=== PATIENT | female | born 1980 | race Caucasian/White ===

== ENCOUNTER → 2018-03-09 13:48 | Outpatient (CLI) | payer OTHER, SELFPAY ==
[2018-03-13 11:12] LABS: HPV Reflexed? NOT INDICATED
== END ==
PROVIDERS: Visit Provider Obstetrics & Gynecology
DX: Z12.4 Encounter for screening for malignant neoplasm of cervix (principal)
CPT/HCPCS: 88175; G0145

== ENCOUNTER → 2019-04-03 15:18 | Outpatient (CLI) | payer OTHER, SELFPAY ==
--- NOTE | 2019-04-03 15:22 | BI_ITS ---
MAMMOGRAPHY - BILATERAL SCREENING REASON FOR EXAM: Female, 38 years old. Routine annual screening examination. PERTINENT HISTORY: Non-contributory. TECHNIQUE: Digital bilateral breast ameya (3D mammographic acquisition) in the CC and MLO projections. 2-D mediolateral oblique (MLO) and craniocaudad (CC) views of both breasts were obtained. CAD: Full Field Digital Mammography with Computer Added Detection was performed. COMPARISON: None. Baseline examination. FINDINGS: Breast Composition: The breasts are extremely dense, which lowers the sensitivity of mammography. There are no dominant masses or suspicious calcifications. No other significant abnormalities are identified. BI/SCREEN MAMM (CAD) W/AMEYA BILAT IMPRESSION: Negative screening mammogram. Yearly followup mammogram recommended. (A) ASSESSMENT CATEGORY: BIRADS Category 1: Negative. A letter regarding these results will be sent to the patient by the facility within 30 days. Approximately 10% of breast cancers are not detected by mammography. A normal mammogram should not delay biopsy of a clinically suspicious abnormality. [id number] Electronically Signed: Marcelino Kay, at 8:37 EDT , Service support ,
== END ==
PROVIDERS: Family Provider Family Medicine; PCP Family Medicine; Referring Provider Obstetrics & Gynecology; Visit Provider Obstetrics & Gynecology
DX: Z12.31 Encounter for screening mammogram for malignant neoplasm of breast (principal)
CPT/HCPCS: 77063; 77067

== ENCOUNTER → 2020-04-23 13:35 | Outpatient (CLI) | payer OTHER, SELFPAY ==
[2016-09-08 13:20] VITALS: BMI 26.9
[2020-04-29 17:01] LABS: HPV Reflexed? NOT INDICATED
== END ==
PROVIDERS: PCP Family Medicine; Visit Provider Obstetrics & Gynecology
DX: Z12.4 Encounter for screening for malignant neoplasm of cervix (principal)
CPT/HCPCS: 88175; G0145

== ENCOUNTER → 2020-06-14 10:11 | Outpatient (CLI) | payer OTHER, SELFPAY ==
--- NOTE | 2020-06-14 10:13 | BI_ITS ---
MAMMOGRAPHY - BILATERAL SCREENING REASON FOR EXAM: Female, 39 years old. Routine annual screening examination. PERTINENT HISTORY: Non-contributory. TECHNIQUE: Digital bilateral breast ameya (3D mammographic acquisition) in the CC and MLO projections. 2-D mediolateral oblique (MLO) and craniocaudad (CC) views of both breasts were obtained. CAD: Full Field Digital Mammography with Computer Added Detection was performed. COMPARISON: Comparison is made with prior study dated 04/03/2019. FINDINGS: Breast Composition: The breasts are extremely dense, which lowers the sensitivity of mammography. There are no dominant masses or suspicious calcifications. No other significant abnormalities are identified. There has been no significant change since the prior study. BI/SCREEN MAMM (CAD) W/AMEYA BILAT IMPRESSION: Stable bilateral screening mammogram. Yearly follow-up mammogram recommended. (A) ASSESSMENT CATEGORY: BIRADS Category 1: Negative. A letter regarding these results will be sent to the patient by the facility within 30 days. Approximately 10% of breast cancers are not detected by mammography. A normal mammogram should not delay biopsy of a clinically suspicious abnormality. [id number] Electronically Signed: Marcelino Kay, at 9:02 EDT , Service support ,
== END ==
PROVIDERS: PCP Family Medicine; Referring Provider Obstetrics & Gynecology; Visit Provider Obstetrics & Gynecology
DX: Z12.31 Encounter for screening mammogram for malignant neoplasm of breast (principal)
CPT/HCPCS: 77063; 77067

== ENCOUNTER 2020-12-03 13:51 | Observation (INO) | payer OTHER, SELFPAY ==
[2020-12-03] VITALS (7 sets, daily range): BP systolic 111–157; BP diastolic 65–101; PULSE 84–98; RESP 14–18; TEMP 36.7–37.4; O2SAT 97–100; BMI 25.4; BMI 25.5
--- NOTE | 2020-12-03 14:19 | CT_ITS ---
STUDY: CT ABDOMEN AND PELVIS WITH CONTRAST REASON FOR EXAM: Female, 40 years old. abdominal pain -- IV PO Contrast RADIATION DOSAGE (If Supplied By Facility): CTDIvol = ( 10.215 ) mGy, DLP = ( 528.79 ) mGycm TECHNIQUE: Transaxial images were obtained from the dome of the diaphragm to the symphysis pubis without oral contrast. Oral and amp; IV Gastrografin and amp; 100mL Isovue-300 was administered. Sagittal and coronal images were reconstructed. Individualized dose optimization techniques were used for this CT. COMPARISON: 12/02/2009 report only FINDINGS: There is a tiny 5 mm nodule in the left lower lobe. The visualized portions of the heart are within normal limits. Liver is normal size homogeneous attenuation. There is no focal mass demonstrated. There is bile duct dilatation in association with cholecystectomy.. Normal spleen. Normal pancreas. Normal bilateral adrenal glands. Normal right kidney. Normal left kidney. Diffusely distended contrast-filled stomach Mild nonspecific ileus with diffuse fecal retention in the colon. No evidence for small bowel obstruction.. No evidence for acute appendicitis. Normal abdominal aorta. Normal inferior vena cava. Normal retroperitoneum. Uterus is prominent for age depressing the dome of the bladder which is incompletely distended and thick-walled. Small left right ovarian cyst measuring approximately 2 x 1.8 cm ovarian cyst measuring 2.35 x 2.4 cm and Normal abdominal wall. Normal osseous structures. CT/Abdomen/Pelvis WITH Contrast IMPRESSION: Mild dilatation in association with prior cholecystectomy likely physiologic without definitive evidence for obstructing intraductal stone or pancreatic mass Diffuse gastric distention and nonspecific ileus may be on the basis of gastroenteritis. No evidence for small bowel obstruction. Enlarged uterus for age and small bilateral ovarian cysts which may be further assessed with pelvic sonogram if indicated Incidental finding of small noncalcified nodule in left lower lobe approximately 5 mm in size which appears to have increased in size slightly since prior study based on report of that exam. Would recommend comparison with prior exam when available and possibly dedicated CT of the chest for further evaluation Electronically Signed: Cabrera Bean MD at 16:58 EST , Service support ,
--- NOTE | 2020-12-03 14:20 | ED.VISSUMM ---
- ER Visit Summary Date of Service: 12/03/20 Chief Complaint: [Abdominal pain] History of Present Illness: The patient is a 40 F [presents to the emergency department complaint of abdominal pain that started around 1 PM today. Patient states that she had not felt well throughout the day and just had some body aches and some mild nausea. Patient states that the pain came on suddenly around 1 PM in the upper abdomen. She continues to have nausea but no vomiting. She denies any diarrhea. Patient's had prior cholecystectomy. She denies NSAID usage. Patient has not had history of peptic ulcer disease. She denies blood in her stool or black tarry stools. She denies urinary symptoms. Patient currently rates her pain a 7 out of 10. Patient's last menstrual period was 2 weeks ago. Patient denies Covid exposures. She did have the Covid vaccine 1 week ago.] Physical Examination: [HEENT-PERRLA, EOMI. Cranial nerves II through XII grossly intact. TMs clear. Mucous membranes moist. No adenopathy. Cardiovascular-regular rate and rhythm without murmur or ectopy Lungs-clear to auscultation, chest wall stable without crepitus or subcu emphysema Abdomen-normoactive bowel sounds, soft. Patient has tenderness to palpation over the epigastric region with some guarding. There is no rebound, rigidity, or cranial signs. Extremities-intact ?4, normal range of motion, normal pulses, atraumatic] Test Results: [] Emergency Department Course and Treatment: [] Treatment Plan: [] Disposition: [] Impression: [] This note was generated with [employer] dictation software. It may contain incorrect words, spelling, and punctuation that were not noted in review of the chart prior to signing ED Disposition - Plan for ED Patient: Referrals: Baltazar Adan MD [Primary Care Provider] -
[2020-12-03 14:45] LABS: Absolute Lymphocyte Count 0.47 X10^3/uL (0.83-4.51); Absolute Neutrophil Count 6.4 X10^3/uL (2.0-7.7); Basophil# 0.03 X10^3/uL; Basophil% 0.4 % (0-1); Eosinophil# 0.02 X10^3/uL; Eosinophils% 0.3 % (0-5); Hematocrit 43.5 % (37-47); Hemoglobin 14.8 g/dL (12.0-15.0); Lymphocyte # 0.47 X10^3/ul (4.0); Lymphocyte % 6.4 % (19-41); Mean Corpuscular Hgb 30.6 pg (27.0-32.0); Mean Corpuscular Volume 90.1 fL (81-99); Mean Platelet Vol. 8.6 fl (6.2-12.0); Monocyte# 0.33 X10^3/uL; Monocyte% 4.5 % (0-10); NRBC Flagged by Analyzer 0 % (0-5); Neutrophil # 6.43 X10^3/uL (2.7-7.7); Neutrophil % 87.7 % (47-70); POSITIVE DIFFERENTIAL YES; Platelet Count 283 K/mm3 (150-450); RBC Distribution Width CV 11.9 % (11.6-14.6); RBC Distribution Width SD 39.3 fl (35.1-43.9); Red Blood Count 4.83 M/mm3 (4.2-5.4); White Blood Count 7.3 K/mm3 (4.4-11.0)
[2020-12-03] MEDS: Morphine 4 MG/ML Syringe IV ×2 (14:47→16:15)
[2020-12-03] MEDS: Ondansetron 4 MG/2 ML Vial IV (14:47)
[2020-12-03] MEDS: 0.9% Normal Saline 1,000 ML 125 ML IV (14:47)
[2020-12-03 14:50] LABS: Differential Indicated SCAN CRITERIA MET
[2020-12-03 14:57] LABS: Internal QC Validated? YES +Cl - CLEAR BKGD; Pregnancy, Serum, hCG Quali. NEGATIVE Negative
[2020-12-03 15:04] LABS: ALB/GLOB Ratio 1.1 RATIO (0.9-2.4); AST(SGOT) 167 U/L (15-37); Alanine Aminotransfer ALT/SGPT 92 U/L (13-56); Albumin, Serum 3.9 g/dL (3.2-5.0); Alkaline Phosphatase 82 U/L (45-117); Anion Gap 6 (5-15); BUN 22 mg/dL (7-18); BUN/Creat Ratio 28.2 RATIO (10-20); Calcium,Total 8.3 mg/dL (8.5-10.1); Chloride 106 mmol/L (98-107); Creatinine, Serum 0.78 mg/dL (0.55-1.02); EST Glomerular Filtration Rate 86 mL/min (>60); Est Glom Filt Rate - Afr Amer 104 mL/min (>60); Estimated Creatinine Clearance 77.72 ml/min; Globulin 3.5 g/dL (2.2-4.2); Glucose 95 mg/dL (74-106); Lipase 116 U/L (73-393); Potassium 3.6 mmol/L (3.5-5.1); Protein, Total 7.4 g/dL (6.4-8.2); Sodium Level 139 mmol/L (136-145)
[2020-12-03 15:27] LABS: Differential Comment SCANNED
[2020-12-03 15:56] LABS: Bacteria 0 SEEN /hpf (None Seen); Red Blood Cells-Urine 0 SEEN /hpf (0-5)
[2020-12-03 16:16] LABS: Color, Urine Yellow (Yellow); Glucose, Dipstick Normal (Normal); Ketone-Dipstick 15 mg/dl (Negative); Leukocyte Esterase-Dipstick 25 /ul (Negative); Nitrite-Dipstick Negative (Negative); Occult Blood-Urine 25 /ul (Negative); Protein-Dipstick 15 mg/dl (Negative); Specific Gravity, Urine 1.015 (1.002-1.030); Urine Bilirubin Dipstick Negative (Negative); Urine Clarity Clear (Clear); Urine Urobilinogen 1 mg/dl (Normal)
[2020-12-03 16:36] LABS: Mucous, Urine 2+ /hpf (<or=2+); Squamous Epithelial Cells - UA 0-5 SEEN /hpf (5-10); White Blood Cells 0-5 SEEN /hpf (0-5)
--- NOTE | 2020-12-03 17:50 | RAD_ITS ---
STUDY: X-RAY - ABDOMEN/PELVIS REASON FOR EXAM: Female, 40 years old. NG Insertion TECHNIQUE: KUB COMPARISON: None. FINDINGS: Normal visualized lung bases. There is an unremarkable bowel gas pattern. There is no demonstrated free abdominal air. There are surgical clips in the right upper quadrant and left mid abdomen. There is residual contrast seen within the renal collecting systems bilaterally NG tube has been placed with tip in the distal stomach at the level of the gastric antrum Normal soft tissue structures. Normal visualized osseous structures. RAD/Abdomen Single View (Portable) IMPRESSION: NG tube placement with tip in the gastric antrum Electronically Signed: Cabrera Bean MD at 18:20 EST , Service support ,
--- NOTE | 2020-12-03 18:41 | PCM.HP.STD ---
History of Present Illness Date of Admission: 12/03/20 The patient is a 40 year old F presented to ER due to epigastric abdominal pain 07/05 initially--started about 1:30 pm today--then was 6-04/04. Pt states she wasn't hungry this AM; was able to workout this AM and the pain came on all of a sudden during a meeting at school. Patient states that yesterday she was feeling normal with no issues. Pt denies n/v, or previous abd pain or GERD or constipation- pt states she has BM daily. Pt had lap lee [address] [place] a/p showed gastric distension, constipation, mild dilated intrahepatic bile ducts. WBC was normal w partial left shift, elevated Tbili/AST/ALT & normal AP. NG placed in ER for 550 cc- pt pain improved with NG now 11/05. Past Medical History Past Medical History (Chronic Problems): Chronic Problems Mass of right upper extremity (Chronic) R22.31 6 cm soft tissue mass right posterior arm/shoulder Allergies No Known Allergies Allergy (Verified 12/03/20 13:54) Home Medications: Ambulatory Orders Medication Instructions Recorded Rizatriptan Benzoate [Rizatriptan] 10 mg PO DAILY PRN PRN 12/03/20 Surgical History: cholecystectomy - lap 2005 [place] Psychiatric History: No pertinent psych hx ATHLETIC EQUIPMENT CUSTODIAN History: No pertinent ATHLETIC EQUIPMENT CUSTODIAN history Lives: With Family Smoking Status: Never smoker Tobacco Use: Non-smoker Alcohol: Occasional - *Family History Maternal History Items: No pertinent history Review of Systems Constitutional: Reports: Anorexia Eyes: Denies: Blurred vision HEENT: Denies: Difficulty Swallowing Cardiovascular: Denies: Chest Pain Respiratory: Denies: Cough Gastrointestinal: Reports: Abdominal Pain, Nausea. Denies: Diarrhea Genitourinary: Denies: Dysuria Skin: Denies: Jaundice Neurological: Denies: Balance problems Psychiatric: Denies: Depression Hematologic/ Lymphatic: Denies: Easy Bleeding VTE Information - Inpt Only VTE Present on Admission: Yes VTE Mechan Device Prophylaxis: SCD's - Physical Exam Vitals/I&O's: Vital Signs Temp Pulse Resp BP Pulse Ox 98.5 F 98 14 157/101 H 99 12/03/20 13:52 12/03/20 18:03 12/03/20 18:03 12/03/20 18:03 12/03/20 18:03 Oxygen Delivery Method Room Air Weight: 143 lb 4.807 oz Body Mass Index (BMI) 25.4 General: Alert, Oriented x3, Cooperative HEENT: - - NG in place Lungs: Normal air movement Cardiovascular: Regular rate Abdomen: Soft, Non-Distended, Tender - mild- epigastric, no PS Extremities: No clubbing, No cyanosis, No edema Neurological: Cranial nerves II-XII grossly intact Psych/Mental Status: Anxious Laboratory Results 12/03/20 14:30: WBC 7.3, RBC 4.83, Hgb 14.8, Hct 43.5, MCV 90.1, MCH 30.6, MCHC 34.0, RDW Std Deviation 39.3, RDW Coeff of Jorge Luis 11.9, Plt Count 283, MPV 8.6, Immature Gran % (Auto) 0.700, Neut % (Auto) 87.7 H, Lymph % (Auto) 6.4 L, [place] % (Auto) 4.5, Eos % (Auto) 0.3, Baso % (Auto) 0.4, Absolute Neuts (auto) 6.4, Absolute Lymphs (auto) 0.47 L, Nucleated RBC % 0, Differential Comment SCANNED 12/03/20 14:30: Sodium 139, Potassium 3.6, Chloride 106, Carbon Dioxide 27.0, Anion Gap 6, BUN 22 H, Creatinine 0.78, Estim Creat Clear Calc 77.72, Est GFR (MDRD) Af Amer 104, Est GFR (MDRD) Non-Af 86, BUN/Creatinine Ratio 28.2 H, Glucose 95, Calcium 8.3 L, Total Bilirubin 2.20 H, AST 167 H, ALT 92 H, Alkaline Phosphatase 82, Total Protein 7.4, Albumin 3.9, Globulin 3.5, Albumin/Globulin Ratio 1.1, Lipase 116 12/03/20 14:30: Lactic Acid 1.0 12/03/20 14:30: Serum , Qual NEGATIVE 12/03/20 15:45: Urine Color Yellow, Urine Clarity Clear, Urine pH 6.0, Ur Specific [place] 1.015, Urine Protein 15 H, Urine Glucose (UA) Normal, Urine Ketones 15 H, Urine Occult Blood 25 H, Urine Nitrite Negative, Urine Bilirubin Negative, Urine Urobilinogen 1 H, Ur Leukocyte Esterase 25 H, Urine RBC 0 SEEN, Urine WBC 0-5 SEEN, Ur Squamous Epith Cells 0-5 SEEN, Urine Bacteria 0 SEEN, Urine Mucus 2+ Current Medications Sodium Chloride () 1,000 mls @ 125 mls/hr IV .Q8H PACHECO Last Admin: 12/03/20 14:47 Dose: 125 mls/hr Documented by: Assessment/Plan 40-year-old female with epigastric abdominal pain, elevated liver functions, CT abdomen pelvis showed distended stomach, constipation, mild dilated intrahepatic biliary ducts 1. Unsure the exact cause of gastric distention. NG put out about 500 in the ER. Patient's pain is much better after NG placement. We will plan to do some enemas due to the constipation see if this helps as well. May also give PO contrast in AM and get KUB 2. We will recheck liver functions in a.m. Continue to be elevated will get an MRCP in AM. Asuncion Nina M.D. Pager: [phone] [facility] [address] [place] [address], Outpatient [place], [address] [place] [id number] Office: [phone] Inpatient E&M: [id number] Init Hosp L2
[2020-12-03] MEDS: 0.9% Saline Lock 10 ML Syringe IV (21:15)
[2020-12-03] MEDS: Lactated Ringers 1,000 ML 125 ML IV (21:15)
--- NOTE | 2020-12-03 21:28 | NURSING ---
soap suds enema given per order
[2020-12-04] VITALS (8 sets, daily range): BP systolic 104–120; BP diastolic 60–77; PULSE 87–100; RESP 14–18; TEMP 37–38; O2SAT 95–100
[2020-12-04] MEDS: Lactated Ringers 1,000 ML 125 ML IV ×4 (04:44→21:40)
--- NOTE | 2020-12-04 06:34 | RAD_ITS ---
STUDY: X-RAY - ABDOMEN/PELVIS REASON FOR EXAM: Female, 40 years old. gastric distention -- Give gastrografin 30 min before- ok for portable TECHNIQUE: Single AP view of the abdomen / pelvis. COMPARISON: None. FINDINGS: Nasogastric tube with the tip in the middle the abdomen likely in the antrum of the stomach. Status post cholecystectomy. There is an unremarkable bowel gas pattern. The visualized liver, spleen and kidneys are grossly normal in size and morphology. Normal soft tissue structures. Normal visualized osseous structures. RAD/Abdomen Single View (Portable) IMPRESSION: 1. Nasogastric tube likely in the antrum of the stomach. 2. No bowel obstruction. Electronically Signed: Bill Hogan MD at 8:52 EST Tel , Service support ,
[2020-12-04 06:49] LABS: Absolute Lymphocyte Count 0.62 X10^3/uL (0.83-4.51); Absolute Neutrophil Count 2.3 X10^3/uL (2.0-7.7); Basophil# 0.02 X10^3/uL; Basophil% 0.6 % (0-1); Eosinophil# 0.04 X10^3/uL; Eosinophils% 1.2 % (0-5); Hemoglobin 12.5 g/dL (12.0-15.0); Lymphocyte # 0.62 X10^3/ul (4.0); Lymphocyte % 18.5 % (19-41); Mean Corp Hgb Conc 33.8 g/dL (32-36); Mean Corpuscular Hgb 30.4 pg (27.0-32.0); Mean Platelet Vol. 8.6 fl (6.2-12.0); Monocyte# 0.39 X10^3/uL; Monocyte% 11.6 % (0-10); NRBC Flagged by Analyzer 0 % (0-5); Neutrophil # 2.27 X10^3/uL (2.7-7.7); Neutrophil % 67.8 % (47-70); Platelet Count 258 K/mm3 (150-450); RBC Distribution Width CV 11.9 % (11.6-14.6); RBC Distribution Width SD 39.1 fl (35.1-43.9); Red Blood Count 4.11 M/mm3 (4.2-5.4); White Blood Count 3.4 K/mm3 (4.4-11.0)
--- NOTE | 2020-12-04 06:55 | PCM.PN.SRG ---
Subjective: 100 cc from NG overnight including 30 cc flush. Denies any abdominal pain, patient did have a bowel movement with the enema. - Physical Exam Vitals/I&O's: Vital Signs Temp Pulse Resp BP Pulse Ox 99 F 94 16 104/60 97 12/04/20 04:42 12/04/20 04:42 12/04/20 04:42 12/04/20 04:42 12/04/20 04:42 Oxygen Delivery Method Room Air Weight: 144 lb 2.917 oz Body Mass Index (BMI) 25.5 Intake and Output for Last 24 Hours 12/02/20 12/03/20 12/04/20 23:59 23:59 23:59 Intake Total 1038.75 / 1038.75 790.42 / 790.42 Output Total 850 / 850 Balance 188.75 / 188.75 790.42 / 790.42 General: Alert, Oriented x3, Cooperative, No apparent distress HEENT: Atraumatic Lungs: Normal air movement Cardiovascular: Regular rate Abdomen: Soft, Non Tender, Non-Distended Laboratory Results 12/03/20 14:30: WBC 7.3, RBC 4.83, Hgb 14.8, Hct 43.5, MCV 90.1, MCH 30.6, MCHC 34.0, RDW Std Deviation 39.3, RDW Coeff of Jorge Luis 11.9, Plt Count 283, MPV 8.6, Immature Gran % (Auto) 0.700, Neut % (Auto) 87.7 H, Lymph % (Auto) 6.4 L, [place] % (Auto) 4.5, Eos % (Auto) 0.3, Baso % (Auto) 0.4, Absolute Neuts (auto) 6.4, Absolute Lymphs (auto) 0.47 L, Nucleated RBC % 0, Differential Comment SCANNED 12/03/20 14:30: Sodium 139, Potassium 3.6, Chloride 106, Carbon Dioxide 27.0, Anion Gap 6, BUN 22 H, Creatinine 0.78, Estim Creat Clear Calc 77.72, Est GFR (MDRD) Af Amer 104, Est GFR (MDRD) Non-Af 86, BUN/Creatinine Ratio 28.2 H, Glucose 95, Calcium 8.3 L, Total Bilirubin 2.20 H, AST 167 H, ALT 92 H, Alkaline Phosphatase 82, Total Protein 7.4, Albumin 3.9, Globulin 3.5, Albumin/Globulin Ratio 1.1, Lipase 116 12/03/20 14:30: Lactic Acid 1.0 12/03/20 14:30: Serum , Qual NEGATIVE 12/03/20 15:45: Urine Color Yellow, Urine Clarity Clear, Urine pH 6.0, Ur Specific [place] 1.015, Urine Protein 15 H, Urine Glucose (UA) Normal, Urine Ketones 15 H, Urine Occult Blood 25 H, Urine Nitrite Negative, Urine Bilirubin Negative, Urine Urobilinogen 1 H, Ur Leukocyte Esterase 25 H, Urine RBC 0 SEEN, Urine WBC 0-5 SEEN, Ur Squamous Epith Cells 0-5 SEEN, Urine Bacteria 0 SEEN, Urine Mucus 2+ 12/04/20 06:13: WBC 3.4 L, RBC 4.11 L, Hgb 12.5, Hct 37.0, MCV 90.0, MCH 30.4, MCHC 33.8, RDW Std Deviation 39.1, RDW Coeff of Jorge Luis 11.9, Plt Count 258, MPV 8.6, Immature Gran % (Auto) 0.300, Neut % (Auto) 67.8, Lymph % (Auto) 18.5 L, Floyd % (Auto) 11.6 H, Eos % (Auto) 1.2, Baso % (Auto) 0.6, Absolute Neuts (auto) 2.3, Absolute Lymphs (auto) 0.62 L, Nucleated RBC % 0 12/04/20 06:13: Sodium Pending, Potassium Pending, Chloride Pending, Carbon Dioxide Pending, Anion Gap Pending, BUN Pending, Creatinine Pending, Est GFR (MDRD) Af Amer Pending, Est GFR (MDRD) Non-Af Pending, BUN/Creatinine Ratio Pending, Glucose Pending, Calcium Pending, Total Bilirubin Pending, Direct Bilirubin Pending, AST Pending, ALT Pending, Alkaline Phosphatase Pending, Total Protein Pending, Albumin Pending Current Medications Lactated Ringer's () 1,000 mls @ 125 mls/hr IV .Q8H COUNTS INCLUDE 234 BEDS AT THE [facility] Last Admin: 12/04/20 04:44 Dose: 125 mls/hr Documented by: Pantoprazole Sodium 40 mg/ (Sodium Chloride) 110 mls @ 330 mls/hr IV Q24 COUNTS INCLUDE 234 BEDS AT THE [facility] Last Infusion: 12/03/20 22:39 Dose: Infused Documented by: Morphine Sulfate (Morphine 2 Mg/Ml Syringe) 2 - 4 mg IV Q2H PRN PRN PRN Reason: PAIN 1-10 Ondansetron HCl (Ondansetron 4 Mg/2 Ml Vial) 4 mg IV Q8H PRN PRN PRN Reason: NAUSEA Sodium Chloride (0.9% Saline Lock 10 Ml Syringe) 10 - 40 ml IV UD PRN PRN Reason: SALINE FLUSH Last Admin: 12/03/20 21:15 Dose: 10 ml Documented by: Throat Lozenges (Benzocaine/Menthol 1 Lozenge) 1 - 2 lozenge MUCOUS MEM Q2H PRN PRN PRN Reason: SORE THROAT Medical Necessity - Tobacco Use Smoking Status: Never smoker Tobacco Use: Non-smoker Assessment/Plan 40-year-old female with epigastric abdominal pain, elevated liver functions, CT abdomen pelvis showed distended stomach, constipation, mild dilated intrahepatic biliary ducts 1. We will have patient drink some oral contrast and check KUB likely NG tube be removed afterwards. Patient did have a small amount of Gastrografin with contrast however was too small to be visualized on x-ray stomach did appear decompressed. Patient really does not want this to back in if it is removed we will get additional Gastrografin and recheck. 2. Chemistry labs pending Addendum 800: Patient's LFTs did increase was planned for MRCP but did talk with Dr. Crowe he will plan for an EGD/ERCP. Patient had minimal output from the NG after taking the initial 200 cc with the Gastrografin. Repeat site did show a going into the small bowel still had a bit on her stomach however this was suctioned prior to removing the NG. Asuncion Nina M.D. Pager: [phone] [facility] [address] [place] [address], [facility], [address] [place] [address] Office: [phone]
[2020-12-04 07:29] LABS: AST(SGOT) 369 U/L (15-37); Alanine Aminotransfer ALT/SGPT 475 U/L (13-56); Albumin, Serum 3.1 g/dL (3.2-5.0); Alkaline Phosphatase 131 U/L (45-117); Anion Gap 6 (5-15); BUN 8 mg/dL (7-18); BUN/Creat Ratio 11.6 RATIO (10-20); Bilirubin, Direct 0.26 mg/dL (0.00-0.30); Chloride 106 mmol/L (98-107); Creatinine, Serum 0.69 mg/dL (0.55-1.02); EST Glomerular Filtration Rate 99 mL/min (>60); Est Glom Filt Rate - Afr Amer 120 mL/min (>60); Estimated Creatinine Clearance 87.86 ml/min; Glucose 88 mg/dL (74-106); Potassium 3.7 mmol/L (3.5-5.1); Protein, Total 6.1 g/dL (6.4-8.2); Sodium Level 138 mmol/L (136-145)
--- NOTE | 2020-12-04 08:27 | PN.SURG_ITS ---
Subjective: Patient reports that she came in yesterday with upper abdominal pain that started yesterday. She says she is feeling better today. She did have nausea. She had no fevers or chills. She had her gallbladder out at least 10 years ago. - Physical Exam Vitals/I&O's: Vital Signs Temp Pulse Resp BP Pulse Ox 99 F 94 16 104/60 97 12/04/20 04:42 12/04/20 04:42 12/04/20 04:42 12/04/20 04:42 12/04/20 04:42 Oxygen Delivery Method Room Air Weight: 144 lb 2.917 oz Body Mass Index (BMI) 25.5 Intake and Output for Last 24 Hours 12/02/20 12/03/20 12/04/20 23:59 23:59 23:59 Intake Total 1038.75 / 1038.75 820.42 / 820.42 Output Total 850 / 850 850 / 850 Balance 188.75 / 188.75 -29.58 / -29.58 General: Alert, Oriented x3 Neck: No JVD Lungs: Normal air movement Abdomen: Soft, Non Tender, Non-Distended Laboratory Results 12/03/20 14:30: WBC 7.3, RBC 4.83, Hgb 14.8, Hct 43.5, MCV 90.1, MCH 30.6, MCHC 34.0, RDW Std Deviation 39.3, RDW Coeff of Jorge Luis 11.9, Plt Count 283, MPV 8.6, Immature Gran % (Auto) 0.700, Neut % (Auto) 87.7 H, Lymph % (Auto) 6.4 L, [place] % (Auto) 4.5, Eos % (Auto) 0.3, Baso % (Auto) 0.4, Absolute Neuts (auto) 6.4, Absolute Lymphs (auto) 0.47 L, Nucleated RBC % 0, Differential Comment SCANNED 12/03/20 14:30: Sodium 139, Potassium 3.6, Chloride 106, Carbon Dioxide 27.0, Anion Gap 6, BUN 22 H, Creatinine 0.78, Estim Creat Clear Calc 77.72, Est GFR (MDRD) Af Amer 104, Est GFR (MDRD) Non-Af 86, BUN/Creatinine Ratio 28.2 H, Glucose 95, Calcium 8.3 L, Total Bilirubin 2.20 H, AST 167 H, ALT 92 H, Alkaline Phosphatase 82, Total Protein 7.4, Albumin 3.9, Globulin 3.5, Albumin/Globulin Ratio 1.1, Lipase 116 12/03/20 14:30: Lactic Acid 1.0 12/03/20 14:30: Serum , Qual NEGATIVE 12/03/20 15:45: Urine Color Yellow, Urine Clarity Clear, Urine pH 6.0, Ur Specific [place] 1.015, Urine Protein 15 H, Urine Glucose (UA) Normal, Urine Ketones 15 H, Urine Occult Blood 25 H, Urine Nitrite Negative, Urine Bilirubin Negative, Urine Urobilinogen 1 H, Ur Leukocyte Esterase 25 H, Urine RBC 0 SEEN, Urine WBC 0-5 SEEN, Ur Squamous Epith Cells 0-5 SEEN, Urine Bacteria 0 SEEN, Urine Mucus 2+ 12/04/20 06:13: WBC 3.4 L, RBC 4.11 L, Hgb 12.5, Hct 37.0, MCV 90.0, MCH 30.4, MCHC 33.8, RDW Std Deviation 39.1, RDW Coeff of Jorge Luis 11.9, Plt Count 258, MPV 8 .6, Immature Gran % (Auto) 0.300, Neut % (Auto) 67.8, Lymph % (Auto) 18.5 L, [place] % (Auto) 11.6 H, Eos % (Auto) 1.2, Baso % (Auto) 0.6, Absolute Neuts (auto) 2.3, Absolute Lymphs (auto) 0.62 L, Nucleated RBC % 0 12/04/20 06:13: Sodium 138, Potassium 3.7, Chloride 106, Carbon Dioxide 26.0, Anion Gap 6, BUN 8, Creatinine 0.69, Estim Creat Clear Calc 87.86, Est GFR (MDRD) Af Amer 120, Est GFR (MDRD) Non-Af 99, BUN/Creatinine Ratio 11.6, Glucose 88, Calcium 8.0 L, Total Bilirubin 2.40 H, Direct Bilirubin 0.26, AST 369 H, ALT 475 H, Alkaline Phosphatase 131 H, Total Protein 6.1 L, Albumin 3.1 L, Globulin 3.0 Current Medications Lactated Ringer's () 1,000 mls @ 125 mls/hr IV .Q8H [facility]HECO Last Admin: 12/04/20 04:44 Dose: 125 mls/hr Documented by: Pantoprazole Sodium 40 mg/ (Sodium Chloride) 110 mls @ 330 mls/hr IV Q24 [facility] Last Infusion: 12/03/20 22:39 Dose: Infused Documented by: Morphine Sulfate (Morphine 2 Mg/Ml Syringe) 2 - 4 mg IV Q2H PRN PRN PRN Reason: PAIN 1-10 Ondansetron HCl (Ondansetron 4 Mg/2 Ml Vial) 4 mg IV Q8H PRN PRN PRN Reason: NAUSEA Sodium Chloride (0.9% Saline Lock 10 Ml Syringe) 10 - 40 ml IV UD PRN PRN Reason: SALINE FLUSH Last Admin: 12/03/20 21:15 Dose: 10 ml Documented by: Throat Lozenges (Benzocaine/Menthol 1 Lozenge) 1 - 2 lozenge MUCOUS MEM Q2H PRN PRN PRN Reason: SORE THROAT Medical Necessity - Tobacco Use Smoking Status: Never smoker Tobacco Use: Non-smoker Assessment/Plan 40-year-old female with biliary dilation elevated LFTs 1. Patient had CT on admission that showed a dilated stomach as well as dilated intrahepatic bile ducts. Her LFTs were elevated yesterday and they have become more elevated today. The patient had NG placed with suctioning of fluid which made her feel better. 2. I discussed this with her and I recommend ERCP and EGD. I will perform an EGD first to ensure that there is not gastric outlet obstruction or stricture and then perform an ERCP to elucidate the cause of her dilated ducts and elevated LFTs. I discussed ERCP with her in detail as well as the risks including but not limited to bleeding, infection, perforation of the bile duct or bowel, pancreatitis. The patient understands and is well to proceed with EGD and ERCP. Jesus Crowe MD Pager: [facility] [address] [place] [address], [address] [place] [address] Office:
--- NOTE | 2020-12-04 08:37 | EKG12_ITS ---
Test Reason : PRE OP Blood Pressure : / mmHG Vent. Rate : 087 BPM Atrial Rate : 087 BPM P-R Int : 136 ms QRS Dur : 084 ms QT Int : 384 ms P-R-T Axes : 071 080 053 degrees QTc Int : 462 ms Normal sinus rhythm Normal ECG No previous ECGs available Confirmed by CARLO MERINO, VJ ([id number]), photography editor RUBIO MEDEIROS ([id number]) on 12/08/2020 11:54:17 A M Referred By: Confirmed By:LESLI MATOS MD
--- NOTE | 2020-12-04 11:37 | MRI_ITS ---
STUDY: MR MRCP WITHOUT CONTRAST REASON FOR EXAM: Female, 40 years old. elevated LFT unable to complete ERCP TECHNIQUE: Standard MRCP technique was utilized. COMPARISON: CT 12/03/2020 FINDINGS: Gall Bladder: Gall bladder is surgically absent. Cystic duct: Normal with no demonstrated fixed filling defect. Intrahepatic ducts: Normal visualized intrahepatic ducts with no demonstrated fixed filling defect, dilation or stricture. Common hepatic duct: Normal with no demonstrated fixed filling defect, dilation or stricture. Common bile duct: Normal with no demonstrated fixed filling defect, dilation or stricture. Pancreatic duct: Normal with no demonstrated fixed filling defect, dilation or stricture. MRI/MRCP Abdomen without Contrast IMPRESSION: Normal MR Cholangiopancreatography (MRCP) after cholecystectomy. Electronically Signed: Bill Hogan MD at 16:48 EST Tel , Service support ,
--- NOTE | 2020-12-04 11:48 | OP.CCLET_ITS ---
12/04/2020 Baltazar Adan Re : ERCP procedure for Nelia Adan This procedure was performed on November. My impressions and recommendations are as follows: Impressions : - The ERCP was aborted due to difficulty with cannulation. - Normal upper GI tract. - The major papilla appeared normal. Recommendations : - Return patient to hospital [facility] for ongoing care. My findings are described in the full procedure note, which is enclosed. If I can be of further assistance, please feel free to contact me at Doctor phone number(s): , Work: . Sincerely, Jesus Crowe MD 12/04/2020 11:47:49 AM This report has been signed electronically.
--- NOTE | 2020-12-04 11:48 | OP.ERCP_ITS ---
Patient Name: Nelia Steve Procedure Date: 12/04/2020 9:26 AM Date of : 1980 Age: 40 Procedure: ERCP Indications: Biliary dilation on Computed Tomogram Scan, Elevated liver enzymes Providers: Jesus Crowe MD Medicines: General Anesthesia Patient Profile: This is a 40 year old female. Refer to note in patient chart for documentation of history and physical. Complications: No immediate complications. Procedure: Pre-Anesthesia Assessment: - Prior to the procedure, a History and Physical was performed, and patient medications and allergies were reviewed. The patient's tolerance of previous anesthesia was also reviewed. The risks and benefits of the procedure and the sedation options and risks were discussed with the patient. All questions were answered, and informed consent was obtained. Prior Anticoagulants: The patient has taken no previous anticoagulant or antiplatelet agents. After reviewing the risks and benefits, the patient was deemed in satisfactory condition to undergo the procedure. After obtaining informed consent, the scope was passed under direct vision. Throughout the procedure, the patient's blood pressure, pulse, and oxygen saturations were monitored continuously. The [id number] endoscope was introduced through the mouth, with the intention of advancing to the bile ducts. The scope was advanced to the duodenum before the procedure was aborted. Medications were not given. The ERCP was aborted due to difficulty with cannulation. Scope In: 9:59:22 AM Scope Out: 11:09:01 AM Total Procedure Duration Time 1 hour 9 minutes 39 seconds Findings: A standard esophagogastroduodenoscopy scope was used for the examination of the upper gastrointestinal tract. The scope was passed under direct vision through the upper GI tract. The upper GI tract was normal. The major papilla was normal. The bile duct could not be cannulated with the sphincterotome. There was bile flowing from the ampulla. Impression: - The ERCP was aborted due to difficulty with cannulation. - Normal upper GI tract. - The major papilla appeared normal. Recommendation: - Return patient to hospital to[facility] for ongoing care. Procedure Code(s): --- Professional --- 84495, 53, Endoscopic retrograde cholangiopancreatography (ERCP); diagnostic, including collection of specimen(s) by brushing or washing, when performed (separate procedure) Diagnosis Code(s): --- Professional --- Z53.8, Procedure and treatment not carried out for other reasons R74.8, Abnormal levels of other serum enzymes K83.8, Other specified diseases of biliary tract CPT copyright 2017 [employer]. All rights reserved. The codes documented in this report are preliminary and upon outreach assistant review may be revised to meet current compliance requirements. Jesus Crowe MD 12/04/2020 11:47:49 AM This report has been signed electronically. Number of Addenda: 0 Note Initiated On: 12/04/2020 9:26 AM
--- NOTE | 2020-12-04 12:05 | PCM.PN.BLA ---
Progress Note Unable to cannulate the common bile duct with ERCP. Did discuss case with GI doctor at [facility] Dr. Cash will plan to get an MRCP. If that shows a stone would plan to transfer the patient for more urgent repeat ERCP otherwise may be able to get follow-up ERCP as an outpatient. Discussed with patient's father and will plan to discuss with patient when she is more awake. There is no sign on EGD of gastric outlet obstruction. STROKE Vital Signs/Narrative: Vital Signs Temp Pulse Resp BP Pulse Ox 12/04/20 12:00 89 14 110/75 100 12/04/20 11:45 94 14 116/74 99 12/04/20 11:30 98 14 111/77 98 12/04/20 11:28 100.4 F H 94 15 117/71 95
--- NOTE | 2020-12-04 12:07 | CASEMGMT ---
Tertiary facilities in-network with patient's insurance: [facility], [facility], [facility], [facility], [facility], [facility], and [place].
[2020-12-04] MEDS: Acetaminophen 325 MG Tablet 650 MG PO (17:19)
[2020-12-05 02:26] VITALS: BP 110/62; PULSE 89; RESP 16; TEMP 37.1; O2SAT 97
[2020-12-05] MEDS: Lactated Ringers 1,000 ML 125 ML IV (05:39)
[2020-12-05 07:09] LABS: AST(SGOT) 154 U/L (15-37); Alanine Aminotransfer ALT/SGPT 313 U/L (13-56); Albumin, Serum 2.8 g/dL (3.2-5.0); Alkaline Phosphatase 114 U/L (45-117); Bilirubin, Direct 0.35 mg/dL (0.00-0.30); Globulin 2.8 g/dL (2.2-4.2); Protein, Total 5.6 g/dL (6.4-8.2)
[2020-12-05 07:19] VITALS: BP 125/71; PULSE 90; RESP 16; TEMP 37.2; O2SAT 97
[2020-12-05] MEDS: Acetaminophen 325 MG Tablet 650 MG PO (07:24)
--- NOTE | 2020-12-05 08:12 | PCM.PN.SRG ---
Subjective: Patient denies any abdominal pain, LFTs have decreased. Patient's MRCP was normal yesterday per report - Physical Exam Vitals/I&O's: Vital Signs Temp Pulse Resp BP Pulse Ox 98.9 F 90 16 125/71 H 97 12/05/20 07:19 12/05/20 07:19 12/05/20 07:19 12/05/20 07:19 12/05/20 07:19 Oxygen Flow Rate (L/min) 1 Oxygen Delivery Method Room Air Weight: 144 lb 2.917 oz Body Mass Index (BMI) 25.5 Intake and Output for Last 24 Hours 12/03/20 12/04/20 12/05/20 23:59 23:59 23:59 Intake Total 1038.75 / 1038.75 2792.92 / 3042.92 1347.92 / 1347.92 Output Total 850 / 850 1750 / 1750 Balance 188.75 / 188.75 1042.92 / 1292.92 1347.92 / 1347.92 General: Alert, Oriented x3, Cooperative, No apparent distress HEENT: Atraumatic Lungs: Normal air movement Cardiovascular: Regular rate Abdomen: Soft, Non Tender, Non-Distended Microbiology Past 72 Hours 12/04/20 08:10 Interface Orders SARS-CoV-2 Antigen (Rapid) - Final Laboratory Results 12/05/20 06:10: Total Bilirubin 1.40 H, Direct Bilirubin 0.35 H, AST 154 H, ALT 313 H, Alkaline Phosphatase 114, Total Protein 5.6 L, Albumin 2.8 L, Globulin 2.8 Current Medications Acetaminophen (Acetaminophen 325 Mg Tablet) 650 mg PO Q6H PRN PRN PRN Reason: HEADACHE/FEVER (T>100F) Last Admin: 12/05/20 07:24 Dose: 650 mg Documented by: Lactated Ringer's () 1,000 mls @ 125 mls/hr IV .Q8H PACHECO Last Admin: 12/05/20 05:39 Dose: 125 mls/hr Documented by: Pantoprazole Sodium 40 mg/ (Sodium Chloride) 110 mls @ 330 mls/hr IV Q24 PACHECO Last Infusion: 12/04/20 13:09 Dose: Infused Documented by: Morphine Sulfate (Morphine 2 Mg/Ml Syringe) 2 - 4 mg IV Q2H PRN PRN PRN Reason: PAIN 1-10 Ondansetron HCl (Ondansetron 4 Mg/2 Ml Vial) 4 mg IV Q8H PRN PRN PRN Reason: NAUSEA Sodium Chloride (0.9% Saline Lock 10 Ml Syringe) 10 - 40 ml IV UD PRN PRN Reason: SALINE FLUSH Last Admin: 12/03/20 21:15 Dose: 10 ml Documented by: Throat Lozenges (Benzocaine/Menthol 1 Lozenge) 1 - 2 lozenge MUCOUS MEM Q2H PRN PRN PRN Reason: SORE THROAT Medical Necessity - Tobacco Use Smoking Status: Never smoker Tobacco Use: Non-smoker Assessment/Plan 40-year-old female with epigastric abdominal pain, elevated liver functions, CT abdomen pelvis showed distended stomach, constipation, mild dilated intrahepatic biliary ducts 1. Patient is having bowel function and tolerating p.o. 2. Since LFTs have decreased her MRCP from yesterday was negative. We will plan to have her follow-up with GI as an outpatient for possible sphincter of Oddi dysfunction. Asuncion Nina M.D. Pager: [phone] [facility] [address] [place] [address], [facility], [address] [place] [address] Office: [phone]
--- NOTE | 2020-12-05 08:14 | DCINST_ITS ---
Discharge Diet: Light diet - advance as tolerated Discharge Activity: No Restrictions, May Shower Allergies/Adverse Reactions: Allergies No Known Allergies Allergy (Verified 12/03/20 13:54) Medications to take at Discharge Rizatriptan Benzoate [Rizatriptan] 10 mg PO DAILY PRN PRN 12/03/20 Primary Care Physician: Baltazar Adan MD [Primary Care Provider] - Test Results: Test results from this visit will be discussed in further detail at your follow- up appointment, if applicable. Please Follow Up With: other - Dr. Shreya Hameed [facility] When: info sent and their office should call you if not let us know Proposed Discharge Date: 12/05/20
--- NOTE | 2020-12-05 08:16 | DS.PCM_ITS ---
Discharge Date and Diagnosis Date of Admission: 12/03/20 Date of Discharge: 12/05/20 - Primary Discharge Diagnosis Acute Problems: Possible sphincter of Oddi dysfunction Elevated LFTs?resolving - Secondary Discharge Diagnosis Chronic Problems: Chronic Problems Mass of right upper extremity (Chronic) R22.31 6 cm soft tissue mass right posterior arm/shoulder Hospital Course and Treatment Imaging Results: Clinical Impression(s) from Imaging Studies Abdomen/Pelvis CT 12/03/20 14:19 IMPRESSION: Mild dilatation in association with prior cholecystectomy likely physiologic without definitive evidence for obstructing intraductal stone or pancreatic mass Diffuse gastric distention and nonspecific ileus may be on the basis of gastroenteritis. No evidence for small bowel obstruction. Enlarged uterus for age and small bilateral ovarian cysts which may be further assessed with pelvic sonogram if indicated Incidental finding of small noncalcified nodule in left lower lobe approximately 5 mm in size which appears to have increased in size slightly since prior study based on report of that exam. Would recommend comparison with prior exam when available and possibly dedicated CT of the chest for further evaluation Electronically Signed: Cabrera Bean MD at 16:58 EST , Service support , KUB X-Ray 12/03/20 17:50 IMPRESSION: NG tube placement with tip in the gastric antrum Electronically Signed: Cabrera Bean MD at 18:20 EST , Service support , KUB X-Ray 12/04/20 06:34 IMPRESSION: 1. Nasogastric tube likely in the antrum of the stomach. 2. No bowel obstruction. Electronically Signed: Bill Hogan MD at 8:52 EST Tel , Service support , MRCP 12/04/20 11:37 IMPRESSION: Normal MR Cholangiopancreatography (MRCP) after cholecystectomy. Electronically Signed: Bill Hogan MD at 16:48 EST Tel , Service support , Operations: ERCP - Dr. Crowe on 12/04 unable to cannulate duct but did see bile flowing Procedures: None Summary of Care Provided: The patient is a 40 year old F initially presented to the ER due to 1 day of epigastric abdominal pain. Patient did have an NG placed in the ER due to gastric distention. CT abdomen pelvis did show gastric distention along with the first part of the small bowel and constipation, along with mild biliary duct dilatation. Patient's liver functions were also elevated with a total bili of 2.2 and AST ALT elevation. After NG was placed patient abdominal pain resolved. However in the morning her LFTs did go up total bili went up to 2.4 and AST ALT went up a little further along with alk phos. Patient was denying any abdominal pain at that time. Patient did undergo an ERCP by Dr. Crowe however he was unable to cannulate the duct but there was bile flowing out the sphincter of Od di. Patient did undergo an MRCP which per report was normal. Patient's repeat LFTs this morning are decreased with total bili of 1.4 and also decrease of AST and ALT and normal alk phos. Patient is tolerating p.o. Will discharge patient plan for follow-up outpatient appointment with GI- Dr. Cash at [facility]. - Physical Exam Vitals/I&O's: Vital Signs Temp Pulse Resp BP Pulse Ox 98.9 F 90 16 125/71 H 97 12/05/20 07:19 12/05/20 07:19 12/05/20 07:19 12/05/20 07:19 12/05/20 07:19 Oxygen Flow Rate (L/min) 1 Oxygen Delivery Method Room Air Weight: 144 lb 2.917 oz Body Mass Index (BMI) 25.5 Intake and Output for Last 24 Hours 12/03/20 12/04/20 12/05/20 23:59 23:59 23:59 Intake Total 1038.75 / 1038.75 2792.92 / 3042.92 1347.92 / 1347.92 Output Total 850 / 850 1750 / 1750 Balance 188.75 / 188.75 1042.92 / 1292.92 1347.92 / 1347.92 General: Alert, Oriented x3, Cooperative, No apparent distress HEENT: Atraumatic Lungs: Normal air movement Cardiovascular: Regular rate Abdomen: Soft, Non Tender, Non-Distended Extremities: No clubbing, No cyanosis, No edema Neurological: Cranial nerves II-XII grossly intact Psych/Mental Status: Normal Affect Microbiology Past 72 Hours 12/04/20 08:10 Interface Orders SARS-CoV-2 Antigen (Rapid) - Final Laboratory Results 12/05/20 06:10: Total Bilirubin 1.40 H, Direct Bilirubin 0.35 H, AST 154 H, ALT 313 H, Alkaline Phosphatase 114, Total Protein 5.6 L, Albumin 2.8 L, Globulin 2.8 Current Medications Acetaminophen (Acetaminophen 325 Mg Tablet) 650 mg PO Q6H PRN PRN PRN Reason: HEADACHE/FEVER (T>100F) Last Admin: 12/05/20 07:24 Dose: 650 mg Documented by: Lactated Ringer's () 1,000 mls @ 125 mls/hr IV .Q8H PACHECO Last Admin: 12/05/20 05:39 Dose: 125 mls/hr Documented by: Pantoprazole Sodium 40 mg/ (Sodium Chloride) 110 mls @ 330 mls/hr IV Q24 PACHECO Last Infusion: 12/04/20 13:09 Dose: Infused Documented by: Morphine Sulfate (Morphine 2 Mg/Ml Syringe) 2 - 4 mg IV Q2H PRN PRN PRN Reason: PAIN 1-10 Ondansetron HCl (Ondansetron 4 Mg/2 Ml Vial) 4 mg IV Q8H PRN PRN PRN Reason: NAUSEA Sodium Chloride (0.9% Saline Lock 10 Ml Syringe) 10 - 40 ml IV UD PRN PRN Reason: SALINE FLUSH Last Admin: 12/03/20 21:15 Dose: 10 ml Documented by: Throat Lozenges (Benzocaine/Menthol 1 Lozenge) 1 - 2 lozenge MUCOUS MEM Q2H PRN PRN PRN Reason: SORE THROAT Discharge Diet: Light diet - advance as tolerated Discharge Activity: No Restrictions, May Shower Home Medications: Medications to take at Discharge Rizatriptan Benzoate [Rizatriptan] 10 mg PO DAILY PRN PRN 12/03/20 Primary Care Physician: Baltazar Adan MD [Primary Care Provider] - Please Follow Up With: other - Dr. Shreya COMBS- [facility] When: info sent and their office should call you if not let us know Disposition: Home Minutes spent on discharge:: 15 Patient Condition:: Good Medical Necessity - Tobacco Use Smoking Status: Never smoker Tobacco Use: Non-smoker Meaningful Use Info Meaningful Use Diagnoses (Choose all that apply): None applicable Inpatient E&M: 97420 Disch Hosp
== END 2020-12-05 09:05 | disposition home or self-care (01) ==
LOC: ED 14:59 → MS3 12-04 07:26
PROVIDERS: Surgery; Admitting Provider Surgery; Emergency Provider Emergency Medicine; PCP Family Medicine; Visit Provider Surgery
PROC: (CPT 43260; principal; 2020-12-04 10:10)
DX: K83.8 Other specified diseases of biliary tract (principal); R74.8 Abnormal levels of other serum enzymes; Z20.828 Contact with and (suspected) exposure to other viral communicable diseases; K21.9 Gastro-esophageal reflux disease without esophagitis; Z79.899 Other long term (current) drug therapy; K59.00 Constipation, unspecified; R79.89 Other specified abnormal findings of blood chemistry; Z53.8 Procedure and treatment not carried out for other reasons; R22.31 Localized swelling, mass and lump, right upper limb; Z90.49 Acquired absence of other specified parts of digestive tract
CPT/HCPCS: 43260; 36415; 74018; 74177; 74181; 76000; 80048; 80053; 80076; 81001; 83605; 83690; 84703; 85025; 87426; 93005; 96361; 96365; 96366; 96375; 96376; 99218; 99251; 99285; J7030; J7120; Q9967; A4216; C1769; G0378; G0463; J1610; J2405

== ENCOUNTER → 2022-07-29 | Outpatient (CLI) | payer OTHER, SELFPAY ==
--- NOTE | 2022-07-29 14:14 | BI_ITS ---
MAMMOGRAPHY - BILATERAL SCREENING REASON FOR EXAM: Female, 41 years old. Routine annual screening examination. PERTINENT HISTORY: Non-contributory. TECHNIQUE: Digital bilateral breast ameya (3D mammographic acquisition) in the CC and MLO projections. 2-D mediolateral oblique (MLO) and craniocaudad (CC) views of both breasts were obtained. CAD: Full Field Digital Mammography with Computer Added Detection was performed. COMPARISON: Comparison is made with prior study dated 06/14/2020 and 04/03/2019. FINDINGS: Breast Composition: The breasts are extremely dense, which lowers the sensitivity of mammography. There are no dominant masses or suspicious calcifications. No other significant abnormalities are identified. There has been no significant change since the prior study. BI/SCRN MAMM (CAD)W/AMEYA BILAT IMPRESSION: Stable bilateral screening mammogram. Yearly follow-up mammogram recommended. (A) ASSESSMENT CATEGORY: BIRADS Category 1: Negative. A letter regarding these results will be sent to the patient by the facility within 30 days. Approximately 10% of breast cancers are not detected by mammography. A normal mammogram should not delay biopsy of a clinically suspicious abnormality. [id number] Electronically Signed: Marcelino Kay MD at 14:59 EDT ,
== END | disposition home or self-care (01) ==
LOC: OPBI 14:12
PROVIDERS: PCP Family Medicine; Visit Provider Student in an Organized Health Care Education/Training Program
DX: Z12.31 Encounter for screening mammogram for malignant neoplasm of breast (principal)
CPT/HCPCS: 77063; 77067

== ENCOUNTER → 2023-01-28 | Outpatient (CLI) | payer OTHER, SELFPAY ==
[2023-01-28 16:34] LABS: hCG Titer Quant., Serum 40 mIU/mL (1-3)
== END | disposition home or self-care (01) ==
LOC: WOBLAB 14:17
PROVIDERS: PCP Family Medicine; Visit Provider Nurse Practitioner Women's Health
DX: O03.9 Complete or unspecified spontaneous abortion without complication (principal)
CPT/HCPCS: 36415; 84702

== ENCOUNTER → 2023-02-09 | Outpatient (CLI) | payer OTHER, SELFPAY ==
[2023-02-09 11:34] LABS: hCG Titer Quant., Serum 1 mIU/mL (1-3)
== END | disposition home or self-care (01) ==
LOC: WOBLAB 10:05
PROVIDERS: PCP Family Medicine; Visit Provider Nurse Practitioner Women's Health
DX: O03.9 Complete or unspecified spontaneous abortion without complication (principal)
CPT/HCPCS: 36415; 84702